=== PATIENT | female | born 1990 | race African-American/Black ===

== ENCOUNTER 2017-11-04 20:13 | Emergency (ER) | payer BC ==
[~2017-11-04] VITALS: Ht 165.1 cm; Wt 90.7 kg
[~2017-11-04 20:13] MED LIST: ACETAMINOPHEN-1 EAC1 PO; COMPAZINE10 MG PO; DIFLUCAN150 MG PO; FLAGYL500 MG PO; FLONASE 0.05%50 MCG NASAL; IBUPROFEN 800800 MG PO; KEFLEX500 MG PO; MACROBID 100 M100 M1 PO; PRENATAL MULTI1 EAC2 PO
[2017-11-04] MEDS ORDERED: NOHOMEMEDICATIONS (20:21)
[2017-11-04] MEDS ORDERED: BACTRIM DS TAB1 EACH PO (20:52)
== END 2017-11-04 21:29 | disposition home or self-care (01) ==
LOC: ER 20:13
DX: L02.415 Cutaneous abscess of right lower limb (principal)

== ENCOUNTER 2018-03-28 23:46 | Emergency (ER) | payer OTHER ==
[~2018-03-28] VITALS: Ht 167.6 cm; Wt 113.4 kg
[~2018-03-28 23:46] MED LIST changes: +BACTRIM DS TAB1 EACH PO; +NOHOMEMEDICATIONS
[2018-03-29 00:05] LABS: URINE BILIRUBIN NEGATIVE (Negative); URINE BLOOD 3+ (Negative); URINE CLARITY SL CLOUDY; URINE COLOR YELLOW; URINE GLUCOSE-RANDOM* NEGATIVE (Negative); URINE KETONES NEGATIVE (Negative); URINE NITRITE-REFLEX NEGATIVE (Negative); URINE PROTEIN (DIPSTICK) NEGATIVE (Negative); URINE SPECIFIC GRAVITY 1.025 (1.005-1.035)
[2018-03-29 00:18] LABS: URINE LEUKOCYTES-REFLEX TRACE (Negative)
[2018-03-29 00:21] LABS: CASTS None Seen /LPF (None Seen); CRYSTALS None Seen /LPF (None Seen); MUCUS 0-3 Light strn/LPF (None Seen); SQUAMOUS >10 Many /LPF (0-3); URINE WBC-REFLEX 0-5 Rare /HPF (0-5)
[2018-03-29 02:55] LABS: ABSOLUTE NEUTROPHILS 4.9 thou/uL (1.4-8.2); BASOPHILS 0.6 % (0.0-2.0); EOSINOPHILS 2.8 % (0.0-3.0); HEMATOCRIT 34.5 % (37.0-47.0); HEMOGLOBIN 11.9 gm/dL (12.0-15.0); LYMPHOCYTES 22.4 % (24.0-44.0); MCH 27.1 pg (26.0-34.0); MCHC 34.6 g/dL (28.0-37.0); MCV 78.3 fL (80.0-100.0); MONOCYTES 8.3 % (1.0-8.0); PLATELET COUNT 279 thou/uL (150-400); POLYS 65.9 % (36.0-66.0); RDW 14.3 % (10.5-14.5); WBC 7.4 thou/uL (4.0-11.0)
[2018-03-29 03:05] LABS: CALCIUM 8.7 mg/dL (8.5-10.1); CREATININE 0.8 mg/dL (0.6-1.0); POTASSIUM 4.5 mmol/L (3.5-5.1)
[2018-03-29 03:11] LABS: ALBUMIN 3.4 g/dL (3.4-5.0); TOTAL BILIRUBIN 0.8 mg/dL (<0.1-1.0); TOTAL PROTEIN 7.4 g/dL (6.4-8.2)
[2018-03-29 04:34] VITALS: BP 125/74
== END 2018-03-29 04:37 | disposition home or self-care (01) ==
LOC: ER 23:46
PROVIDERS: Emergency Medicine; Physician Assistant
DX: O20.0 Threatened abortion (principal); Z3A.00 Weeks of gestation of pregnancy not specified

== ENCOUNTER 2018-03-31 10:32 | Emergency (ER) | payer OTHER ==
[~2018-03-31] VITALS: Ht 167.6 cm; Wt 113.4 kg
[2018-03-31 10:35] VITALS: BP 145/91
== END 2018-03-31 12:20 | disposition home or self-care (01) ==
LOC: ER 10:32
DX: O03.9 Complete or unspecified spontaneous abortion without complication (principal)

== ENCOUNTER 2018-08-14 09:55 | Emergency (ER) | payer OTHER ==
[~2018-08-14] VITALS: Ht 165.1 cm; Wt 111.1 kg
[2018-08-14 10:17] LABS: URINE BILIRUBIN NEGATIVE (Negative); URINE BLOOD NEGATIVE (Negative); URINE CLARITY CLEAR; URINE COLOR YELLOW; URINE GLUCOSE-RANDOM* NEGATIVE (Negative); URINE KETONES NEGATIVE (Negative); URINE LEUKOCYTES-REFLEX TRACE (Negative); URINE NITRITE-REFLEX NEGATIVE (Negative); URINE PROTEIN (DIPSTICK) NEGATIVE (Negative); URINE SPECIFIC GRAVITY 1.025 (1.005-1.035); URINE UROBILINOGEN 0.2 E.U./dl (0.2-1.0)
[2018-08-14] MEDS ORDERED: BACTRIM DS TAB1 EACH PO (10:24)
[2018-08-14] MEDS ORDERED: KEFLEX500 M1 PO (10:48)
[2018-08-14 10:52] VITALS: BP 125/80
[2018-08-15] MEDS ORDERED: PEPCID20 MG PO (11:46)
[2018-08-15] MEDS ORDERED: HYDROCORTISONE120 M1 TOP (12:05)
== END 2018-08-14 10:53 | disposition home or self-care (01) ==
LOC: ER 09:55
PROVIDERS: Emergency Medicine
DX: N39.0 Urinary tract infection, site not specified (principal); Z33.1 Pregnant state, incidental; Z87.891 Personal history of nicotine dependence

== ENCOUNTER 2018-08-15 10:19 | Emergency (ER) | payer OTHER ==
[~2018-08-15] VITALS: Ht 165.1 cm; Wt 111.1 kg
[~2018-08-15 10:19] MED LIST changes: +KEFLEX500 M1 PO
[2018-08-15] MEDS ORDERED: PEPCID20 MG PO (11:46)
[2018-08-15] MEDS ORDERED: HYDROCORTISONE120 M1 TOP (12:05)
[2018-08-15 12:06] VITALS: BP 125/75
== END 2018-08-15 12:06 | disposition home or self-care (01) ==
LOC: ER 10:19
DX: K21.9 Gastro-esophageal reflux disease without esophagitis (principal); R07.89 Other chest pain; Z87.891 Personal history of nicotine dependence

== ENCOUNTER 2018-10-06 17:12 | Emergency (ER) | payer OTHER ==
[~2018-10-06] VITALS: Ht 165.1 cm; Wt 108.9 kg
[~2018-10-06 17:12] MED LIST changes: +HYDROCORTISONE120 M1 TOP; +PEPCID20 MG PO
[2018-10-06 18:41] LABS: ABSOLUTE NEUTROPHILS 4.6 thou/uL (1.4-8.2); BASOPHILS 0.4 % (0.0-2.0); EOSINOPHILS 0.7 % (0.0-3.0); HEMATOCRIT 41.3 % (37.0-47.0); HEMOGLOBIN 13.9 gm/dL (12.0-15.0); LYMPHOCYTES 17.5 % (24.0-44.0); MCH 27.5 pg (26.0-34.0); MCHC 33.6 g/dL (28.0-37.0); MCV 81.8 fL (80.0-100.0); MONOCYTES 11.6 % (1.0-8.0); PLATELET COUNT 228 thou/uL (150-400); POLYS 69.8 % (36.0-66.0); RBC 5.05 mil/uL (4.20-5.00); RDW 14.3 % (10.5-14.5); WBC 6.5 thou/uL (4.0-11.0)
[2018-10-06 18:45] LABS: CALCIUM 9.9 mg/dL (8.5-10.1); CREATININE 0.6 mg/dL (0.6-1.0); POTASSIUM 3.7 mmol/L (3.5-5.1)
[2018-10-06] MEDS ORDERED: DICLEGIS DR 101 EACH PO (19:32)
[2018-10-06 19:53] VITALS: BP 114/72
== END 2018-10-06 19:56 | disposition home or self-care (01) ==
LOC: ER 17:12
PROVIDERS: Student in an Organized Health Care Education/Training Program
DX: O21.0 Mild hyperemesis gravidarum (principal); Z3A.11 11 weeks gestation of pregnancy; Z87.891 Personal history of nicotine dependence

== ENCOUNTER 2019-01-13 12:55 | Emergency (ER) | payer OTHER ==
[~2019-01-13] VITALS: Ht 165.1 cm; Wt 102.1 kg
[~2019-01-13 12:55] MED LIST changes: +DICLEGIS DR 101 EACH PO
[2019-01-13 13:20] LABS: URINE BILIRUBIN NEGATIVE (Negative); URINE BLOOD NEGATIVE (Negative); URINE CLARITY CLEAR; URINE COLOR YELLOW; URINE GLUCOSE-RANDOM* NEGATIVE (Negative); URINE KETONES NEGATIVE (Negative); URINE LEUKOCYTES-REFLEX 1+ (Negative); URINE NITRITE-REFLEX NEGATIVE (Negative); URINE PROTEIN (DIPSTICK) NEGATIVE (Negative); URINE SPECIFIC GRAVITY >= 1.030 (1.005-1.035)
[2019-01-13 13:29] LABS: BACTERIA-REFLEX 1-9 Few /HPF (None Seen); CASTS None Seen /LPF (None Seen); CRYSTALS None Seen /LPF (None Seen); SQUAMOUS >10 Many /LPF (0-3); URINE RBC 0-2 Rare /HPF (0-2); URINE WBC-REFLEX 6-15 Few /HPF (0-5)
[2019-01-13 14:58] VITALS: BP 116/64
== END 2019-01-13 15:04 | disposition home or self-care (01) ==
LOC: ER 12:55
PROVIDERS: Physician Assistant
DX: O26.892 Other specified pregnancy related conditions, second trimester (principal); N89.8 Other specified noninflammatory disorders of vagina; Z87.891 Personal history of nicotine dependence; Z3A.26 26 weeks gestation of pregnancy

== ENCOUNTER 2019-07-14 17:09 | Emergency (ER) | payer OTHER ==
[~2019-07-14] VITALS: Ht 165.1 cm; Wt 97.5 kg
[2019-07-14] MEDS ORDERED: PNV 29-1 TABLE1 EACH PO (17:19)
[2019-07-14 17:37] LABS: URINE BILIRUBIN NEGATIVE (Negative); URINE BLOOD NEGATIVE (Negative); URINE CLARITY CLEAR; URINE COLOR YELLOW; URINE GLUCOSE-RANDOM* NEGATIVE (Negative); URINE KETONES TRACE (Negative); URINE NITRITE-REFLEX NEGATIVE (Negative); URINE PROTEIN (DIPSTICK) NEGATIVE (Negative)
[2019-07-14 17:39] LABS: URINE LEUKOCYTES-REFLEX 1+ (Negative)
[2019-07-14 17:53] LABS: BACTERIA-REFLEX None Seen /HPF (None Seen); CASTS None Seen /LPF (None Seen); CRYSTALS None Seen /LPF (None Seen); SQUAMOUS 0-3 Few /LPF (0-3); URINE RBC 0-2 Rare /HPF (0-2); URINE WBC-REFLEX 0-5 Rare /HPF (0-5); YEAST-REFLEX Present (None Seen)
[2019-07-14] MEDS ORDERED: DIFLUCAN150 MG PO (19:20)
[2019-07-15 06:32] VITALS: BP 127/73
== END 2019-07-14 19:30 | disposition home or self-care (01) ==
LOC: ER 17:09
PROVIDERS: Emergency Medicine
DX: B37.3 Candidiasis of vulva and vagina (principal); Z87.891 Personal history of nicotine dependence

== ENCOUNTER 2020-07-26 18:06 | Emergency (ER) | payer OTHER ==
[~2020-07-26] VITALS: Ht 165.1 cm; Wt 99.8 kg
[~2020-07-26 18:06] MED LIST changes: +PNV 29-1 TABLE1 EACH PO
[2020-07-26 18:22] LABS: URINE BILIRUBIN NEGATIVE (Negative); URINE BLOOD NEGATIVE (Negative); URINE CLARITY CLEAR; URINE COLOR YELLOW; URINE GLUCOSE-RANDOM* NEGATIVE (Negative); URINE KETONES NEGATIVE (Negative); URINE LEUKOCYTES-REFLEX NEGATIVE (Negative); URINE NITRITE-REFLEX NEGATIVE (Negative); URINE PROTEIN (DIPSTICK) NEGATIVE (Negative); URINE SPECIFIC GRAVITY >= 1.030 (1.005-1.035)
[2020-07-26 21:37] VITALS: BP 110/65
== END 2020-07-26 21:37 | disposition home or self-care (01) ==
LOC: ER 18:06
PROVIDERS: Emergency Medicine
DX: N76.0 Acute vaginitis (principal); R35.0 Frequency of micturition; R39.15 Urgency of urination; Z87.891 Personal history of nicotine dependence

== ENCOUNTER 2021-08-16 13:15 | Emergency (ER) | payer OTHER ==
[~2021-08-16] VITALS: Ht 165.1 cm; Wt 104.3 kg
[2021-08-16 13:28] VITALS: BP 122/75
--- NOTE | 2021-08-16 21:28 | NUR ---
Notified pt of positive covid status of herself and 3 children--Dwaine Soliz, Dream Sharon, Dierre hSaron. Discussed home care and when to return to the ER. Pt verbalized understanding.
== END 2021-08-16 14:21 | disposition home or self-care (01) ==
LOC: ER 13:15
PROVIDERS: Emergency Medicine
DX: U07.1 COVID-19 (principal); Z87.891 Personal history of nicotine dependence